=== PATIENT | female | born 1955 | race Caucasian/White ===

== ENCOUNTER 2022-05-19 10:15 | Emergency (ER) | payer SELFPAY ==
[~2022-05-19] VITALS: Ht 175.3 cm; Wt 84.8 kg
[2022-05-19 11:14] LABS: BASOPHILS ABSOLUTE AUTO 0.02 K/mm3 (0.00-0.23); BASOPHILS PERCENT AUTO 0 % (0-2); EOSINOPHILS PERCENT AUTO 0 % (0-6); Hematocrit 45.6 % (33.0-51.0); Hemoglobin 15.5 g/dL (11.5-16.0); IMMATURE GRAN ABSOLUTE AUTO 0.03 K/mm3 (0.00-0.10); IMMATURE GRAN PERCENT AUTO 1 % (0-1); LYMPHOCYTES ABSOLUTE AUTO 1.77 K/mm3 (0.84-5.20); LYMPHOCYTES PERCENT AUTO 29 % (21-46); MONOCYTES PERCENT AUTO 10 % (4-13); Mean Corpuscular HGB 31.4 pg (26.0-34.0); Mean Corpuscular Volume 92 fL (80-100); NEUTROPHILS PERCENT AUTO 60 % (41-73); Platelet Count 199 K/mm3 (150-400); RDW Coefficient Variation 12.7 % (11.7-14.2); RDW Standard Deviation 42.9 fL (35.1-46.3); Red Blood Cell Count 4.94 M/mm3 (3.80-5.20); White Blood Cell Count 6.02 K/mm3 (4.00-11.30)
[2022-05-19 11:33] LABS: Albumin, Blood 3.3 g/dL (3.4-5.0); Albumin/Globulin Ratio 0.9 (0.8-1.8); Bilirubin, Total 0.3 mg/dL (0.1-1.0); Bun/Creatinine Ratio 21.2 (12.0-20.0); Calcium, Blood 8.8 mg/dL (8.5-10.1); Creatinine, Blood 0.85 mg/dL (0.40-1.00); Globulin, Blood 3.8 g/dL (2.2-4.0); Potassium, Blood 3.8 mmol/L (3.5-5.5); Total Protein, Blood 7.1 g/dL (6.4-8.2)
[2022-05-19 12:38] LABS: Influenza B, PCR NEGATIVE (NEGATIVE); Resp Syncytial Virus, PCR NEGATIVE (NEGATIVE); SARS-Cov-2 (COVID-19) PCR, MMC NEGATIVE (NEGATIVE)
[2022-05-19 12:52] LABS: Influenza A, PCR POSITIVE (NEGATIVE)
[2022-05-19 13:13] LABS: Source, Urine Condom Cath
[2022-05-19 13:23] LABS: Appearance, Urine Cloudy (Clear); Bilirubin, Urine Neg (Neg); Blood, Urine 1+ (Neg); Color, Urine Yellow (P-Yellow); Glucose Qualitative, Urine Neg (Neg); Ketones, Urine Neg (Neg); Leukocyte Esterase, Urine 1+ (Neg); Nitrite, Urine Pos (Neg); Protein, Urine 3+ (Neg); Urobilinogen, Urine NORM (Normal)
[2022-05-19 14:04] LABS: Mucus Light (0-Heavy)
[2022-05-19 14:05] LABS: Bacteria Many /hpf; Red Blood Cells, Urine 0-2 /hpf (0-2); Squamous Epithelial Cells Many /hpf (Few)
== END 2022-05-19 17:15 | disposition home or self-care (01) ==
LOC: ER 10:15
PROVIDERS: Physician Assistant; Student in an Organized Health Care Education/Training Program
DX: J10.1 Influenza due to other identified influenza virus with other respiratory manifestations (principal); J45.909 Unspecified asthma, uncomplicated; F17.210 Nicotine dependence, cigarettes, uncomplicated
CPT/HCPCS: 0241U; 71045; 74177; 80053; 81001; 83690; 85025; 87077; 87086; 87186; J1885; Q9967

== ENCOUNTER 2023-07-29 04:42 | Observation (INO) | payer MEDICARE ==
[~2023-07-29] VITALS: Ht 170.2 cm; Wt 89.0 kg
[2023-07-29] MEDS ORDERED: Acetaminophen 500 MG Tab PO ONE (05:00)
[2023-07-29] MEDS ORDERED: Ketorolac Tromethamine 15mg Vial IV ONE (05:00)
[2023-07-29] MEDS ORDERED: Prochlorperazine Edisylate 10 mg Vial IV ONE (05:00)
[2023-07-29] MEDS ORDERED: Magnesium Sulf 2 GM/Water 50ML 50 ML IV ONE (05:00)
[2023-07-29] MEDS ORDERED: Lactated Ringer's 1,000 ML IV ONE (05:00)
[2023-07-29] MEDS ORDERED: DiphenhydrAMINE HCl 50 MG/ML 1ML Vial IV ONE (05:00)
[2023-07-29 05:23] LABS: BASOPHILS ABSOLUTE AUTO 0.04 K/mm3 (0.00-0.23); BASOPHILS PERCENT AUTO 1 % (0-2); EOSINOPHILS ABSOLUTE AUTO 0.08 K/mm3 (0.00-0.68); EOSINOPHILS PERCENT AUTO 1 % (0-6); Hematocrit 45.7 % (33.0-51.0); Hemoglobin 15.1 g/dL (11.5-16.0); IMMATURE GRAN ABSOLUTE AUTO 0.02 K/mm3 (0.00-0.10); IMMATURE GRAN PERCENT AUTO 0 % (0-1); LYMPHOCYTES ABSOLUTE AUTO 2.82 K/mm3 (0.84-5.20); LYMPHOCYTES PERCENT AUTO 36 % (21-46); MONOCYTES ABSOLUTE AUTO 0.48 K/mm3 (0.16-1.47); MONOCYTES PERCENT AUTO 6 % (4-13); Mean Corpuscular HGB 31.1 pg (26.0-34.0); Mean Corpuscular Volume 94 fL (80-100); Mean Platelet Volume 9.8 fL (9.1-12.4); NEUTROPHILS ABSOLUTE AUTO 4.31 K/mm3 (1.96-9.15); NEUTROPHILS PERCENT AUTO 56 % (41-73); Platelet Count 227 K/mm3 (150-400); RDW Coefficient Variation 12.6 % (11.7-14.2); RDW Standard Deviation 43.6 fL (35.1-46.3); Red Blood Cell Count 4.85 M/mm3 (3.80-5.20); White Blood Cell Count 7.75 K/mm3 (4.00-11.30)
[2023-07-29 05:46] LABS: Bun/Creatinine Ratio 16.5 (12.0-20.0); Calcium, Blood 9.4 mg/dL (8.5-10.1); Creatinine, Blood 0.85 mg/dL (0.40-1.00); Potassium, Blood 4.1 mmol/L (3.5-5.5)
[2023-07-29] MEDS ORDERED: Clopidogrel Bisulfate 75 MG Tab PO ONE (06:55)
[2023-07-29] MEDS ORDERED: Aspirin 81 MG TabEC PO ONE (07:00)
[2023-07-29] MEDS ORDERED: Clopidogrel Bisulfate 75 MG Tab ONE (07:31)
[2023-07-29] MEDS ORDERED: HydrALAZINE HCl 20 MG / ML 1ML Vial IV PRN (08:35)
[2023-07-29] MEDS ORDERED: FLU VACC QS2023-24(6MOS UP)/PF 60 MCG/0.5 ML SYRINGE IM PRN (08:35)
[2023-07-29] MEDS ORDERED: Acetaminophen 325 MG TABLET PO PRN (08:40)
[2023-07-29] MEDS ORDERED: Aspirin 81 MG Chew PO SCH (09:00)
[2023-07-29] MEDS ORDERED: Clopidogrel Bisulfate 75 MG Tab PO SCH (09:00)
[2023-07-29] MEDS ORDERED: Atorvastatin 40 MG Tab PO SCH (09:00)
[2023-07-29] MEDS ORDERED: Lisinopril 10 MG Tab PO SCH (09:00)
[2023-07-29 10:37] VITALS: BP 144/67
[2023-07-29] MEDS ORDERED: IBUP200 PO (11:11)
--- NOTE | 2023-07-29 11:40 | NUR ---
patient ambulated in halls with pt
[2023-07-29 17:13] VITALS: BP 138/79
--- NOTE | 2023-07-29 18:24 | NUR ---
ALERT AND ORIENTED, PLEASANT TO CARE, STEADY GAIT, RIGHT SIDE WEAKNESS IMPROVING, LEFT OCCIPITAL NONHEMORRHAGIC INFARCTION, RIGHT PERIPHERAL VISION NOT IMPROVING, STEADY STAND BY ASSIST FOR BR PRIVILEGES, ECHO DONE AT BEDSIDE, TELE ON, PT/OT TO SEE PATIENT, MAKES NEEDS KNOWN, CALL LIGHT WITH IN REACH, WILL RELAY TO PM RN
[2023-07-29 19:16] VITALS: BP 118/57
[2023-07-30 02:49] VITALS: BP 116/63
--- NOTE | 2023-07-30 05:52 | NUR ---
CHIEF QUALITY OFFICER SUMMARY PT A&OX 4, PLEASANT. PT WOKE ONCE WITH A HEADACHE, GIVEN APAP WITH GOOD RESULTS. NO ACUTE CHANGES THIS SHIFT. PT IS EXPECTING TO D/C TODAY. 07/30/23 GABBI RAYMUNDO RN
[2023-07-30] MEDS ORDERED: Enoxaparin 40 MG/0.4 ML SYR SC SCH (09:00)
[2023-07-30 09:09] VITALS: BP 140/71
[2023-07-30] MEDS ORDERED: ASPI81CH PO (10:40)
[2023-07-30] MEDS ORDERED: ATOR40TA PO (10:41)
[2023-07-30] MEDS ORDERED: CLOP75 PO (10:42)
[2023-07-30] MEDS ORDERED: Prinivil10 MG PO (10:43)
--- NOTE | 2023-07-30 11:33 | NUR ---
Upon receiving a referral for spiritual care, I visted the patient. 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 She also informs me of the financial and daily living concerns that she has. She explains about her [employer] system and how important her manjinder is to her, especially at times like these. She has small quinault of support and recognizes these limitations as she ponders life with her new limitations. I normalize her experience, reinforce helpful attutides and practices and provide therapeutic listening and prayer. Patient responded well and showed signs of reduced stress. I will continue to remain available to patient and family.
== END 2023-07-30 11:40 | disposition home or self-care (01) ==
LOC: ER 04:42 → MEDS 04:43 → ENPENDDIS 07-30 08:52 → MEDS 07-30 11:40
PROVIDERS: Emergency Medicine; ADMIT Family Medicine
DX: I63.9 Cerebral infarction, unspecified (principal); E78.5 Hyperlipidemia, unspecified; I10 Essential (primary) hypertension; F17.210 Nicotine dependence, cigarettes, uncomplicated; Z66 Do not resuscitate
CPT/HCPCS: 70450; 70496; 80048; 83036; 83721; 85025; 93005; 93010; 93306; 93880; 96361; 96365-59; 96375-59; 97116; 97162; 97165; 97530; 99285-25; A9270; G0378; J0780; J1200; J1650; J1885; J3475; J7120; Q9967